=== PATIENT | male | born 1970 | race Caucasian/White ===

== ENCOUNTER 2018-01-02 21:36 | Emergency (ER) | payer OTHER ==
[~2018-01-02] VITALS: Ht 162.6 cm; Wt 80.9 kg
[~2018-01-02 21:36] MED LIST: Cipro PO; Cozaar PO; Toprol XL PO; Vicodin,Norco 5/325 PO
[2018-01-02] MEDS ORDERED: KEFLEX500 MG PO (23:45)
[2018-01-03 00:36] VITALS: BP 128/68
== END 2018-01-03 00:37 | disposition home or self-care (01) ==
LOC: EME 21:36
DX: S62.661A Nondisplaced fracture of distal phalanx of left index finger, initial encounter for closed fracture (principal); S61.211A Laceration without foreign body of left index finger without damage to nail, initial encounter; W23.0XXA Caught, crushed, jammed, or pinched between moving objects, initial encounter; Z23 Encounter for immunization
CPT/HCPCS: 73140; 99281; 99284; S0020